=== PATIENT | female | born 1940 | race African-American/Black ===

== ENCOUNTER 2021-04-08 09:31 | Outpatient (CLI) | payer MEDICARE, MEDICAID ==
[~2021-04-08 09:31] MED LIST: Magnevist 469MG/ML 20 ML VIAL ONE
== END 2021-04-08 09:32 | disposition home or self-care (01) ==
LOC: MRI 09:31
PROVIDERS: ATTEND Family Medicine
DX: R26.9 Unspecified abnormalities of gait and mobility (principal); R41.0 Disorientation, unspecified; I67.82 Cerebral ischemia; H50.00 Unspecified esotropia
CPT/HCPCS: 70553; A9579

== ENCOUNTER 2021-09-13 13:33 | Outpatient (CLI) | payer MEDICARE, MEDICAID ==
[2021-09-14 00:37] LABS: SARS-CoV-2 PCR by NAA Not Detected (NotDetected)
== END 2021-09-13 13:34 | disposition home or self-care (01) ==
LOC: LABBT 13:33
PROVIDERS: ATTEND Family Medicine
DX: Z01.812 Encounter for preprocedural laboratory examination (principal); Z20.822 Contact with and (suspected) exposure to COVID-19
CPT/HCPCS: U0003; U0005

== ENCOUNTER 2021-10-02 15:18 | Outpatient (CLI) | payer MEDICARE, MEDICAID ==
[2021-10-03 12:01] LABS: SARS-CoV-2 PCR by NAA Not Detected (NotDetected)
== END 2021-10-02 15:19 | disposition home or self-care (01) ==
LOC: LABBT 15:18
PROVIDERS: ATTEND Family Medicine
DX: Z01.812 Encounter for preprocedural laboratory examination (principal); Z20.822 Contact with and (suspected) exposure to COVID-19
CPT/HCPCS: U0003; U0005

== ENCOUNTER 2021-10-04 09:45 | Outpatient (CLI) | payer MEDICARE, MEDICAID | END 2021-10-04 09:46 | disposition home or self-care (01) | PROVIDERS: ATTEND Family Medicine | DX: I69.191 Dysphagia following nontraumatic intracerebral hemorrhage (principal); R13.14 Dysphagia, pharyngoesophageal phase; R63.30 Feeding difficulties, unspecified; R53.1 Weakness | CPT/HCPCS: 74230 ==

== ENCOUNTER 2021-11-08 18:01 | Inpatient (IN) | payer MEDICARE, MEDICAID ==
[2021-11-08 18:37] LABS: Bacteria/HPF None Seen HPF (None Seen); Bilirubin Negative (Negative); Blood, Urine 3+ (Negative); Clarity Extra Turbid (Clear); Glucose, Urine (Dipstick) Normal (Negative); Ketone, Urine Negative (Negative); Leukocyte 75 Leu/uL (Negative); Nitrite Negative (Negative); Protein, Urine (Dipstick) 200 mg/dL (Neg-Trace); RBC/HPF Greater than 50 HPF (0-3); Specific Gravity, Urine 1.011 (1.002-1.036); Squamous Epithelial None Seen HPF (0-3); Urobilinogen Normal mg/dL (Less than 2); WBC/HPF 21-50 HPF (0-3); pH, Urine 7.5 (5.0-9.0)
[2021-11-08 18:45] LABS: #Eosinphils 0.1 thou/uL (0.0-0.7); #Lymphocytes 1.7 thou/uL (1.20-3.40); #Monocytes 0.9 thou/uL (0.11-0.59); #Neutrophils 6.5 thou/uL (1.40-6.50); %Basophils 0.5 % (0.0-1.0); %Eosinophils 1.4 % (0.0-10.0); %Lymphocytes 18.5 % (21.0-51.0); %Monocytes 9.5 % (0.0-10.0); %Neutrophils 70.1 % (42.0-75.0); Hemoglobin 10.6 g/dL (12.0-16.0); Mean Corpuscular HGB CONC 35.2 g/dL (32.0-36.0); Mean Corpuscular Hemoglobin 33.8 pg (27.0-31.0); Mean Platelet Volume 7.9 fL (7.4-10.4); Platelet Count 243 thou/uL (130-400); RBC Distribution Width 12.5 % (11.5-14.5); Red Blood Cell (RBC) Count 3.13 mill/uL (4.20-5.40); White Blood Cell (WBC) Count 9.3 thou/uL (4.8-10.8)
[2021-11-08 19:05] LABS: ALT (SGPT) 16 U/L (8-55); AST (SGOT) 28 U/L (5-34); Albumin 3.9 g/dL (3.4-4.8); Alkaline Phosphatase 113 U/L (40-110); Anion Gap 14 mmol/L (10-20); BUN (Urea Nitrogen) 20 mg/dL (9.8-20.1); Bilirubin, Total 0.5 mg/dL (0.2-1.2); Calc. Creatinine Clearance 0 mL/min (70-130); Calcium 9.6 mg/dL (7.8-10.44); Carbon Dioxide 27 mmol/L (23-31); Chloride 98 mmol/L (98-107); Globulin 4.5 g/dL (2.4-3.5); Glucose 142 mg/dL (83-110); Potassium 3.4 mmol/L (3.5-5.1); Protein, Total 8.4 g/dL (5.8-8.1); Sodium 136 mmol/L (136-145)
[2021-11-08] MEDS ORDERED: Vancomycin 1 GM/200 ML BAG ONE (20:22)
[2021-11-08] MEDS ORDERED: cefTRIAXone\\ROCEPHIN 1 GM VIAL ONE (20:22)
[2021-11-08] MEDS ORDERED: Senokot S 8.6-50 MG TAB PO PRN (21:12)
[2021-11-08] MEDS ORDERED: Bisacodyl 5 MG TAB PO PRN (21:12)
[2021-11-08] MEDS ORDERED: Acetaminophen 325 MG TAB PO PRN (21:12)
[2021-11-08] MEDS ORDERED: HumaLOG 300 UNITS/3 ML VIAL SC PRN ×2 (21:30)
[2021-11-08] MEDS ORDERED: Dextrose 50% Abboject 50 ML SYRINGE SLOW IVP PRN (21:30)
[2021-11-08] MEDS ORDERED: Dextrose 5% in Water 1,000 ML IV PRN (21:30)
[2021-11-08 21:34] LABS: Lactic Acid 0.9 mmol/L (0.5-2.2)
[2021-11-08 22:39] VITALS: BMI 21.5
[2021-11-08] MEDS: Sodium Chloride 0.9% 1,000 ML IV SCH (22:45)
[2021-11-08 23:35] LABS: SARS-CoV-2 NAA Rapid Test DETECTED (NotDetected)
[2021-11-09] MEDS ORDERED: Pharmacy to Dose REMDESIVIR IVPB PRN (01:11)
[2021-11-09 07:11] LABS: #Eosinphils 0.1 thou/uL (0.0-0.7); #Lymphocytes 1.4 thou/uL (1.20-3.40); #Monocytes 0.8 thou/uL (0.11-0.59); #Neutrophils 3.9 thou/uL (1.40-6.50); %Basophils 0.5 % (0.0-1.0); %Eosinophils 1.2 % (0.0-10.0); %Lymphocytes 22.8 % (21.0-51.0); %Monocytes 13.4 % (0.0-10.0); %Neutrophils 62.1 % (42.0-75.0); Hemoglobin 9.1 g/dL (12.0-16.0); Mean Corpuscular HGB CONC 33.3 g/dL (32.0-36.0); Mean Corpuscular Hemoglobin 32.1 pg (27.0-31.0); Mean Corpuscular Volume 96.4 fL (78.0-98.0); Mean Platelet Volume 7.9 fL (7.4-10.4); Platelet Count 199 thou/uL (130-400); RBC Distribution Width 12.5 % (11.5-14.5); Red Blood Cell (RBC) Count 2.83 mill/uL (4.20-5.40); White Blood Cell (WBC) Count 6.2 thou/uL (4.8-10.8)
[2021-11-09 07:18] LABS: Hemoglobin A1c 5.1 % (4.0-6.0)
[2021-11-09 07:36] LABS: ALT (SGPT) 12 U/L (8-55); AST (SGOT) 21 U/L (5-34); Albumin 3.1 g/dL (3.4-4.8); Alkaline Phosphatase 86 U/L (40-110); Anion Gap 12 mmol/L (10-20); BUN (Urea Nitrogen) 18 mg/dL (9.8-20.1); Bilirubin, Total 0.4 mg/dL (0.2-1.2); Calc. Creatinine Clearance 32 mL/min (70-130); Calcium 8.6 mg/dL (7.8-10.44); Carbon Dioxide 25 mmol/L (23-31); Chloride 104 mmol/L (98-107); Globulin 3.5 g/dL (2.4-3.5); Glucose 88 mg/dL (83-110); Potassium 3.8 mmol/L (3.5-5.1); Protein, Total 6.6 g/dL (5.8-8.1); Sodium 137 mmol/L (136-145)
[2021-11-09] MEDS: Ascorbic Acid 500 mg Chewable Tablet PO SCH (08:32)
[2021-11-09] MEDS: Famotidine/PF 20 mg/2ml Vial SLOW IVP SCH (08:32)
[2021-11-09] MEDS: Cholecalciferol (Vitamin D3) 400 UNITS TAB PO SCH (08:32)
[2021-11-09] MEDS: Zinc Sulfate 220 MG CAP PO SCH (08:32)
[2021-11-09] MEDS: Sodium Chloride 0.9% 1,000 ML IV SCH (13:29)
[2021-11-09] MEDS ORDERED: Vancomycin 1 GM in Premix Bag 1 BAG IVPB SCH (21:00)
[2021-11-09] MEDS ORDERED: Vancomycin HCl 750 MG in Sodium Chloride 0.9% 250 ML 250 ML IVPB SCH (21:00)
[2021-11-09] MEDS: cefTRIAXone\\ROCEPHIN 1 GM in Sodium Chloride 0.9% 100 ML IVPB SCH (22:20)
[2021-11-10] MEDS: Sodium Chloride 0.9% 1,000 ML IV SCH ×3 (05:05→17:58)
[2021-11-10] MEDS: Ascorbic Acid 500 mg Chewable Tablet PO SCH (08:13)
[2021-11-10] MEDS: Cholecalciferol (Vitamin D3) 400 UNITS TAB PO SCH (08:13)
[2021-11-10] MEDS: Zinc Sulfate 220 MG CAP PO SCH (08:13)
[2021-11-10] MEDS: Famotidine/PF 20 mg/2ml Vial SLOW IVP SCH (08:13)
[2021-11-10 09:55] LABS: #Eosinphils 0.1 thou/uL (0.0-0.7); #Lymphocytes 1.2 thou/uL (1.20-3.40); #Monocytes 0.5 thou/uL (0.11-0.59); #Neutrophils 3.9 thou/uL (1.40-6.50); %Basophils 0.3 % (0.0-1.0); %Eosinophils 1.6 % (0.0-10.0); %Lymphocytes 20.7 % (21.0-51.0); %Monocytes 9.4 % (0.0-10.0); %Neutrophils 67.9 % (42.0-75.0); Hemoglobin 8.9 g/dL (12.0-16.0); Mean Corpuscular HGB CONC 34.2 g/dL (32.0-36.0); Mean Corpuscular Hemoglobin 32.7 pg (27.0-31.0); Mean Corpuscular Volume 95.7 fL (78.0-98.0); Mean Platelet Volume 7.6 fL (7.4-10.4); Platelet Count 196 thou/uL (130-400); RBC Distribution Width 12.3 % (11.5-14.5); Red Blood Cell (RBC) Count 2.72 mill/uL (4.20-5.40); White Blood Cell (WBC) Count 5.7 thou/uL (4.8-10.8)
[2021-11-10 10:15] LABS: Anion Gap 11 mmol/L (10-20); BUN (Urea Nitrogen) 15 mg/dL (9.8-20.1); Calc. Creatinine Clearance 35 mL/min (70-130); Calcium 8.5 mg/dL (7.8-10.44); Carbon Dioxide 25 mmol/L (23-31); Chloride 104 mmol/L (98-107); Glucose 97 mg/dL (83-110); Potassium 3.5 mmol/L (3.5-5.1); Sodium 136 mmol/L (136-145)
[2021-11-10 20:49] LABS: Vancomycin, Random 12.2 ug/mL (See Comment)
[2021-11-10] MEDS: Melatonin 3 MG TAB PO PRN (20:51)
[2021-11-10] MEDS: cefTRIAXone\\ROCEPHIN 1 GM in Sodium Chloride 0.9% 100 ML IVPB SCH (20:51)
[2021-11-11] MEDS: Levothyroxine Sodium 50 MCG TAB PO SCH (05:33)
[2021-11-11] MEDS: Famotidine 20 MG TAB PO SCH (08:43)
[2021-11-11] MEDS: Zinc Sulfate 220 MG CAP PO SCH (08:43)
[2021-11-11] MEDS: Aspirin 81 mg Enteric Coated Tablet PO SCH (08:43)
[2021-11-11] MEDS: Atorvastatin Calcium 20 MG TAB PO SCH (08:43)
[2021-11-11] MEDS: Famotidine/PF 20 mg/2ml Vial SLOW IVP SCH (08:43)
[2021-11-11] MEDS: Sodium Chloride 0.9% 1,000 ML IV SCH (08:44)
[2021-11-11] MEDS: Multivit, Therapeutic 1 TAB PO SCH (08:44)
[2021-11-11] MEDS: Cholecalciferol (Vitamin D3) 400 UNITS TAB PO SCH (08:44)
[2021-11-11] MEDS: Ascorbic Acid 500 mg Chewable Tablet PO SCH (08:44)
[2021-11-11] MEDS ORDERED: LEVOTHYROXINE SODIUM 50 MCG PO SCH (09:00)
[2021-11-11] MEDS ORDERED: Non-Formulary Item 1 EACH (Multivitamin [Multivitamins] 1 CAP Capsule) PO SCH (09:00)
[2021-11-11] MEDS ORDERED: Non-Formulary Item 1 EACH (Famotidine [Famotidine] 40 MG Tablet) PO SCH (09:00)
[2021-11-11] MEDS: Ondansetron PF 4 MG/2 ML Vial IVP PRN ×2 (12:04→20:24)
[2021-11-11] MEDS: Melatonin 3 MG TAB PO PRN (20:23)
[2021-11-11] MEDS: cefTRIAXone\\ROCEPHIN 1 GM in Sodium Chloride 0.9% 100 ML IVPB SCH (20:23)
[2021-11-12] MEDS: Levothyroxine Sodium 50 MCG TAB PO SCH (04:45)
[2021-11-12] MEDS: Sodium Chloride 0.9% 1,000 ML IV SCH (05:06)
[2021-11-12] MEDS: Ascorbic Acid 500 mg Chewable Tablet PO SCH (08:33)
[2021-11-12] MEDS: Cholecalciferol (Vitamin D3) 400 UNITS TAB PO SCH (08:34)
[2021-11-12] MEDS: Zinc Sulfate 220 MG CAP PO SCH (08:34)
[2021-11-12] MEDS: Multivit, Therapeutic 1 TAB PO SCH (08:34)
[2021-11-12] MEDS: Atorvastatin Calcium 20 MG TAB PO SCH (08:34)
[2021-11-12] MEDS: Famotidine/PF 20 mg/2ml Vial SLOW IVP SCH (08:34)
[2021-11-12] MEDS: Aspirin 81 mg Enteric Coated Tablet PO SCH (08:34)
[2021-11-12] MEDS: Famotidine 20 MG TAB PO SCH (08:34)
[2021-11-12] MEDS: cefTRIAXone\\ROCEPHIN 1 GM in Sodium Chloride 0.9% 100 ML IVPB SCH (21:18)
[2021-11-13] MEDS: Sodium Chloride 0.9% 1,000 ML IV SCH (02:48)
[2021-11-13] MEDS: Levothyroxine Sodium 50 MCG TAB PO SCH (06:09)
[2021-11-13] MEDS: Atorvastatin Calcium 20 MG TAB PO SCH (08:32)
[2021-11-13] MEDS: Aspirin 81 mg Enteric Coated Tablet PO SCH (08:32)
[2021-11-13] MEDS: Zinc Sulfate 220 MG CAP PO SCH (08:32)
[2021-11-13] MEDS: Cholecalciferol (Vitamin D3) 400 UNITS TAB PO SCH (08:33)
[2021-11-13] MEDS: Ascorbic Acid 500 mg Chewable Tablet PO SCH (08:33)
[2021-11-13] MEDS: Famotidine 20 MG TAB PO SCH (08:33)
[2021-11-13] MEDS: Multivit, Therapeutic 1 TAB PO SCH (08:33)
[2021-11-13] MEDS: Famotidine/PF 20 mg/2ml Vial SLOW IVP SCH ×2 (08:33→08:34)
[2021-11-14] MEDS: Levothyroxine Sodium 50 MCG TAB PO SCH (05:33)
[2021-11-14] MEDS: Multivit, Therapeutic 1 TAB PO SCH (09:06)
[2021-11-14] MEDS: Cholecalciferol (Vitamin D3) 400 UNITS TAB PO SCH (09:06)
[2021-11-14] MEDS: Famotidine 20 MG TAB PO SCH (09:06)
[2021-11-14] MEDS: Ascorbic Acid 500 mg Chewable Tablet PO SCH (09:06)
[2021-11-14] MEDS: Zinc Sulfate 220 MG CAP PO SCH (09:06)
[2021-11-14] MEDS: Aspirin 81 mg Enteric Coated Tablet PO SCH (09:06)
[2021-11-14] MEDS: Famotidine/PF 20 mg/2ml Vial SLOW IVP SCH (09:06)
[2021-11-14] MEDS: Atorvastatin Calcium 20 MG TAB PO SCH (09:08)
[2021-11-14 09:56] VITALS: TEMP 98.8
[2021-11-14 16:18] VITALS: BP 107/74
== END 2021-11-14 18:36 | disposition home health service (06) | DRG 178 ==
LOC: ERS 18:01 → T4-A 20:29
PROVIDERS: ADMIT Emergency Medicine; ATTEND Internal Medicine
PROC: 8E0ZXY6 Isolation (ICD-10-PCS; principal; 2021-11-08)
DX: U07.1 COVID-19 (principal); N30.01 Acute cystitis with hematuria; N17.9 Acute kidney failure, unspecified; R33.9 Retention of urine, unspecified; I50.9 Heart failure, unspecified; H54.40 Blindness, one eye, unspecified eye; R00.1 Bradycardia, unspecified; Z96.642 Presence of left artificial hip joint; E86.0 Dehydration; E11.65 Type 2 diabetes mellitus with hyperglycemia; Z79.899 Other long term (current) drug therapy; Z79.890 Hormone replacement therapy
CPT/HCPCS: 36415; 36416; 70450; 71045; 80048; 80053; 80202; 81003; 81015; 83036; 83605; 83880; 84484; 85025; 86140; 87040; 87086; 96365; 96367; J0696; J2405; J3370; J3490; J7050; S0028; U0002

== ENCOUNTER 2021-11-20 15:54 | Emergency (ER) | payer MEDICARE, MEDICAID | END 2021-11-20 17:22 | disposition home or self-care (01) | LOC: ERS 15:54 | DX: N39.0 Urinary tract infection, site not specified (principal); E11.9 Type 2 diabetes mellitus without complications; H54.40 Blindness, one eye, unspecified eye; R33.9 Retention of urine, unspecified; H50.9 Unspecified strabismus | CPT/HCPCS: 99283 ==